=== PATIENT | male | born 1945 | race Caucasian/White ===

== ENCOUNTER 2016-12-09 11:48 | Inpatient (IN) | payer BC, OTHER ==
[~2016-12-09] VITALS: Ht 160 cm; Wt 77.0 kg
[~2016-12-09 11:48] MED LIST: ADULT LOW DOSE81 M1 PO; ADVAIR HFA120 INHALA IH; ALDACTONE50 MG PO; ALLOPURINOL100 MG PO; AMPICILLIN2 GM IV; ASCORBIC ACID500 M3 PO; ASPIRIN E.C.81 M1 PO; ASPIRIN81 M1 PO; Ascorbic Acid,Ester- PO; CARDIZEM120 MG PO; CARTIA XT240 MG PO; CEFTIN500 MG PO; CIPRO500 M1 PO; COLACE100 MG PO; COUMADIN,JANTOVE2 MG PO; COUMADIN2 MG PO; COUMADIN3 M1 PO; COUMADIN3 MG PO; Cardizem CD,Cartia X PO; Ceftin PO; Coumadin,Jantoven PO; ENDOCET 10-6501 EACH PO; ENDOCET 5-3251 EACH PO; FEOSOL325 MG PO; FISH OIL CONC1 EACH PO; FLOVENT 11120 INHALA IH; FLUTICASONE PRO16 GM BOTH NARES; GENTAMICIN 40 MG/ML IV; HEART RATE MED; IMDUR60 MG PO; IRON325 MG PO; JANTOVEN2 MG PO; K-DUR20 MEQ PO; KEFLEX500 MG PO; KLOR-CON M2020 MEQ PO; L-ARGININE1000 MG PO; L-ARGININE500 MG PO; LANOXIN,DIGI0.125 MG PO; LEVAQUIN500 MG PO; LOVENOX80 MG/0.8 PO; LYRICA150 MG PO; METOPROLOL SUCC50 MG PO; METOPROLOL TART50 MG PO; MYCELEX10 MG; Mycostatin PO; NIACIN250 M1 PO; NIASPAN500 MG PO; NYSTATIN100000 UN1 PO; Niacin PO; OXYCODONE APAP PO; PENICILLIN IV; PERCOCET 7.5-31 EACH PO; PRILOSEC20 MG PO; Pravachol PO; Rocephin IV; TAZTIA XT240 M1 PO; TOPAMAX50 MG PO; TOPROL XL50 MG PO; Toprol XL PO; VITAMIN C500 M1 PO; XOPENEX HF200 INHALA IH; ZYLOPRIM100 MG PO; Zithromax PO; [UNRECOGNIZED DRUG - OTHER] PO; coumadin
[2016-12-09 12:50] LABS: MCH 29.3 PG (29.0-34.0); MCHC 32.2 G/DL (30.0-36.0); MCV 91.1 FL (86-99); MEAN PLAT.VOLUME 9.5 uM^3 (9.0-12.4); PLATELET COUNT 171 K/uL (156-360); RED BLOOD COUNT 4.06 M/uL (4.00-5.50)
[2016-12-09 13:00] LABS: INTER. NORMALIZED RATIO 2.9; PTT 32.6 (25-32)
[2016-12-09 13:09] LABS: CHLORIDE 105 mEq/L (99-109); POTASSIUM 3.9 mEq/L (3.7-5.4); SODIUM 138 mEq/L (136-147)
[2016-12-09 13:10] LABS: GLUCOSE 120 mg/dL (70-99); TROP-I INTERPRETATION NEGATIVE; TROPONIN-I < 0.01 ng/mL (0.0-0.30)
[2016-12-09 13:12] LABS: ANION GAP 8 MEQ/L (2-14)
[2016-12-09 13:14] LABS: GFR ESTIMATE (CALCULATED) > 59 mL/min/
[2016-12-09 13:15] LABS: UREA NITROGEN (BUN) 23 mg/dL (9-23)
[2016-12-09 13:43] LABS: ABS NEUTROPHIL COUNT 20.9; BAND NEUTROPHILS 0.9 % (0-8.0); EOSINOPHIL ABS CT 0; INSTRUMENT ABS NEUTROPHIL CT 20.2 K/uL; SEG.NEUTROPHILS 93.9 % (46.0-76.0)
[2016-12-09] MEDS ORDERED: CARTIA XT240 MG PO (14:41)
[2016-12-09] MEDS ORDERED: TOPROL XL50 MG PO (14:42)
[2016-12-09] MEDS ORDERED: NIACIN ER500 MG PO (14:43)
[2016-12-09] MEDS ORDERED: ENDOCET 10-3251 EACH PO (14:44)
[2016-12-09] MEDS ORDERED: COUMADIN2 MG PO (14:44)
[2016-12-09] MEDS ORDERED: WARFARIN SODIUM1 MG PO (14:45)
[2016-12-09] MEDS ORDERED: XOPENEX HF200 INHALA IH (14:46)
[2016-12-09] MEDS ORDERED: IMDUR60 MG PO (14:46)
[2016-12-09] MEDS ORDERED: OMEPRAZOLE20 MG PO (14:47)
[2016-12-09] MEDS ORDERED: MYCOSTATIN 100,60 ML PO (15:01)
[2016-12-09 20:27] VITALS: BP 129/61; BP 139/82
[2016-12-09 20:48] LABS: TROP-I INTERPRETATION NEGATIVE; TROPONIN-I 0.02 ng/mL (0.0-0.30)
[2016-12-09 23:45] VITALS: BP 139/82
[2016-12-10 03:10] VITALS: BP 122/58
[2016-12-10 04:03] LABS: EOSINOPHIL (%) 0 % (0-5); HEMATOCRIT 35.8 % (38.0-50.0); IMMATURE GRANULOCYTE (%) 1.3 % (0.0-0.7); IMMATURE GRANULOCYTE COUNT 0.2 K/uL; INSTRUMENT ABS NEUTROPHIL CT 16.2 K/uL; LYMPHOCYTE COUNT 0.2 K/uL (1.0-2.8); MCH 29.2 PG (29.0-34.0); MCHC 31.6 G/DL (30.0-36.0); MCV 92.5 FL (86-99); MEAN PLAT.VOLUME 9.9 uM^3 (9.0-12.4); MONOCYTE (%) 2.5 % (3-12); MONOCYTE COUNT 0.4 K/uL (0-0.8); NEUTROPHIL (%) 95.1 % (45-76); NEUTROPHIL COUNT 16.2 K/uL (1.8-6.4); PLATELET COUNT 141 K/uL (156-360); RBC DIS.WIDTH-CV 15.4 % (11.8-14.6); RBC DIS.WIDTH-SD 52.2 % (39-53); RED BLOOD COUNT 3.87 M/uL (4.00-5.50)
[2016-12-10 04:22] LABS: CHLORIDE 106 mEq/L (99-109); SODIUM 138 mEq/L (136-147)
[2016-12-10 04:23] LABS: POTASSIUM 4.9 mEq/L (3.7-5.4)
[2016-12-10 04:24] LABS: GLUCOSE 146 mg/dL (70-99)
[2016-12-10 04:25] LABS: ANION GAP 4 MEQ/L (2-14)
[2016-12-10 04:27] LABS: GFR ESTIMATE (CALCULATED) > 59 mL/min/
[2016-12-10 04:28] LABS: UREA NITROGEN (BUN) 19 mg/dL (9-23)
[2016-12-10 04:29] LABS: TROP-I INTERPRETATION NEGATIVE; TROPONIN-I < 0.01 ng/mL (0.0-0.30)
[2016-12-10 04:36] LABS: INTER. NORMALIZED RATIO 2.5; PROTHROMBIN TIME 26.4 (9.2-11.2)
[2016-12-10 09:49] LABS: INTERNAL CONTROL VALID? YES
[2016-12-10 12:33] VITALS: BP 130/63
[2016-12-10 15:48] VITALS: BP 128/68
[2016-12-10 20:06] VITALS: BP 134/63
[2016-12-10 23:12] VITALS: BP 161/66
[2016-12-11 03:53] VITALS: BP 113/59
[2016-12-11 07:20] VITALS: BP 132/98
[2016-12-11 07:43] LABS: HEMATOCRIT 32.6 % (38.0-50.0); MCH 29.3 PG (29.0-34.0); MCHC 31.3 G/DL (30.0-36.0); MCV 93.7 FL (86-99); MEAN PLAT.VOLUME 10.2 uM^3 (9.0-12.4); NRBC (%) 0.3 /100 WBC (0-0); PLATELET COUNT 127 K/uL (156-360); RBC DIS.WIDTH-SD 51.4 % (39-53); RED BLOOD COUNT 3.48 M/uL (4.00-5.50); WHITE BLOOD COUNT 7.4 K/uL (4.1-10.2)
[2016-12-11 07:46] LABS: INTER. NORMALIZED RATIO 2.8; PROTHROMBIN TIME 29.3 (9.2-11.2)
[2016-12-11 08:00] LABS: CHLORIDE 105 mEq/L (99-109); POTASSIUM 4.2 mEq/L (3.7-5.4); SODIUM 136 mEq/L (136-147)
[2016-12-11 08:02] LABS: GLUCOSE 190 mg/dL (70-99)
[2016-12-11 08:03] LABS: ANION GAP 6 MEQ/L (2-14)
[2016-12-11 08:06] LABS: GFR ESTIMATE (CALCULATED) > 59 mL/min/
[2016-12-11 08:07] LABS: UREA NITROGEN (BUN) 17 mg/dL (9-23)
[2016-12-11 11:53] VITALS: BP 148/70
[2016-12-11 16:30] VITALS: BP 144/64
[2016-12-11 18:30] VITALS: BP 133/69
[2016-12-11 23:00] VITALS: BP 139/67
[2016-12-12 03:34] VITALS: BP 145/70
[2016-12-12 06:50] VITALS: BP 153/74
[2016-12-12 07:25] LABS: EOSINOPHIL (%) 0 % (0-5); HEMATOCRIT 32.9 % (38.0-50.0); IMMATURE GRANULOCYTE (%) 2.3 % (0.0-0.7); IMMATURE GRANULOCYTE COUNT 0.1 K/uL; INSTRUMENT ABS NEUTROPHIL CT 5.9 K/uL; LYMPHOCYTE COUNT 0.1 K/uL (1.0-2.8); MCH 29.5 PG (29.0-34.0); MCHC 31.6 G/DL (30.0-36.0); MCV 93.2 FL (86-99); MEAN PLAT.VOLUME 10.1 uM^3 (9.0-12.4); MONOCYTE (%) 1.3 % (3-12); MONOCYTE COUNT 0.1 K/uL (0-0.8); NEUTROPHIL (%) 94.6 % (45-76); NEUTROPHIL COUNT 5.9 K/uL (1.8-6.4); NRBC (%) 0.3 /100 WBC (0-0); PLATELET COUNT 182 K/uL (156-360); RBC DIS.WIDTH-CV 15.1 % (11.8-14.6); RED BLOOD COUNT 3.53 M/uL (4.00-5.50); WHITE BLOOD COUNT 6.2 K/uL (4.1-10.2)
[2016-12-12 07:40] LABS: ALKALINE PHOSPHATASE 97 IU/L (3-129); ANION GAP 10 MEQ/L (2-14); CHLORIDE 106 MEQ/L (99-109); GFR ESTIMATE (CALCULATED) > 59 mL/min/; GLUCOSE 226 mg/dL (70-99); POTASSIUM 3.6 MEQ/L (3.7-5.4); SAMPLE HEMOLYSIS CHECK 0; SAMPLE ICTERIC CHECK 0; SAMPLE LIPEMIA CHECK 0; SODIUM 139 MEQ/L (136-147); TOTAL BILIRUBIN 1.3 MG/DL (0.0-1.0); UREA NITROGEN (BUN) 17 mg/dL (9-23)
[2016-12-12 07:48] LABS: INTER. NORMALIZED RATIO 3.9
[2016-12-12 08:12] LABS: PROTHROMBIN TIME 41.6 (9.2-11.2)
[2016-12-12] MEDS ORDERED: SPIRIVA RESPIMAT4 GM IH (08:55)
[2016-12-12] MEDS ORDERED: PREDNISONE10 MG PO (08:55)
[2016-12-12] MEDS ORDERED: AUGMENTIN875 MG PO (08:55)
== END 2016-12-12 10:19 | disposition home or self-care (01) | DRG 190 ==
LOC: EME 11:48 → EDOF 14:15 → 4EAST 14:15 → EDOF 17:25 → 4EAST 20:21 → 5EAST 12-11 18:22
PROVIDERS: Emergency Medicine; Hospitalist; Internal Medicine
DX: J44.0 Chronic obstructive pulmonary disease with (acute) lower respiratory infection (principal); J15.9 Unspecified bacterial pneumonia; J96.01 Acute respiratory failure with hypoxia; C15.5 Malignant neoplasm of lower third of esophagus; R04.2 Hemoptysis; I10 Essential (primary) hypertension; I27.2 Other secondary pulmonary hypertension; I25.10 Atherosclerotic heart disease of native coronary artery without angina pectoris; I48.2 Chronic atrial fibrillation; D64.9 Anemia, unspecified; E78.5 Hyperlipidemia, unspecified; K21.9 Gastro-esophageal reflux disease without esophagitis; G89.29 Other chronic pain; J98.4 Other disorders of lung; J84.10 Pulmonary fibrosis, unspecified; Z87.01 Personal history of pneumonia (recurrent); Z98.61 Coronary angioplasty status; Z79.01 Long term (current) use of anticoagulants; Z95.2 Presence of prosthetic heart valve; Z95.0 Presence of cardiac pacemaker; Z87.891 Personal history of nicotine dependence; Z80.9 Family history of malignant neoplasm, unspecified
CPT/HCPCS: 71010; 71020; 71275; 77386; 80048; 80053; 80202; 84484; 85025; 85027; 85610; 85730; 87040; 87070; 87205; 87449; 93005; 94010; 94640; 94640 76; 94667; 94668; 94799; 96375; 96413; 96417; 99202; 99281; 99285; G0463 25; J0456; J1100; J1626; J2543; J2930; J3370; J7030; J7050; J9045; J9267

== ENCOUNTER 2016-12-23 08:01 | Inpatient (IN) | payer BC, OTHER ==
[~2016-12-23] VITALS: Ht 160 cm; Wt 83.5 kg
[~2016-12-23 08:01] MED LIST changes: +AUGMENTIN875 MG PO; +ENDOCET 10-3251 EACH PO; +MYCOSTATIN 100,60 ML PO; +NIACIN ER500 MG PO; +OMEPRAZOLE20 MG PO; +PREDNISONE10 MG PO; +SPIRIVA RESPIMAT4 GM IH; +WARFARIN SODIUM1 MG PO
[2016-12-23 08:56] LABS: CHLORIDE 103 mEq/L (99-109); POTASSIUM 3.9 mEq/L (3.7-5.4); SODIUM 136 mEq/L (136-147)
[2016-12-23 08:57] LABS: PTT 34.8 (25-32)
[2016-12-23 08:58] LABS: GLUCOSE 137 mg/dL (70-99); PROTHROMBIN TIME 20.9 (9.2-11.2)
[2016-12-23 09:00] LABS: ANION GAP 9 MEQ/L (2-14); TOTAL BILIRUBIN 1.6 mg/dL (0.0-1.0)
[2016-12-23 09:02] LABS: ALKALINE PHOSPHATASE 84 IU/L (3-129); GFR ESTIMATE (CALCULATED) > 59 mL/min/
[2016-12-23 09:04] LABS: UREA NITROGEN (BUN) 22 mg/dL (9-23)
[2016-12-23 09:08] LABS: TROP-I INTERPRETATION NEGATIVE; TROPONIN-I 0.04 ng/mL (0.0-0.30)
[2016-12-23 09:59] LABS: HEMATOCRIT 36.2 % (38.0-50.0); MCH 29.4 PG (29.0-34.0); MCHC 31.2 G/DL (30.0-36.0); RBC DIS.WIDTH-CV 16.7 % (11.8-14.6); RBC DIS.WIDTH-SD 54.6 % (39-53); RED BLOOD COUNT 3.85 M/uL (4.00-5.50)
[2016-12-23 10:00] LABS: EOSINOPHIL (%) 0 % (0-5); IMMATURE GRANULOCYTE (%) 1.6 % (0.0-0.7); INSTRUMENT ABS NEUTROPHIL CT 0.6 K/uL; MONOCYTE (%) 6.3 % (3-12); NEUTROPHIL (%) 85.8 % (45-76); NEUTROPHIL COUNT 0.6 K/uL (1.8-6.4)
[2016-12-23 10:03] LABS: WHITE BLOOD COUNT 0.6 K/uL (4.1-10.2)
[2016-12-23 10:17] LABS: BAND NEUTROPHILS 8.3 % (0-8.0); LYMPHOCYTES 5.7 % (15.0-45.0); SEG.NEUTROPHILS 78.9 % (46.0-76.0)
[2016-12-23 10:18] LABS: ATYPICAL LYMPHOCYTE 0.4 %; BASOPHILS 0.4 %; METAMYELOCYTES 1.3 %; NUCLEATED RBC'S 3.1
[2016-12-23 10:19] LABS: ANISOCYTOSIS 2+; MACROCYTES 1+; SPHEROCYTES 2+
[2016-12-23] MEDS ORDERED: COUMADIN1 MG PO ×2 (11:37→11:39)
[2016-12-23] MEDS ORDERED: COMPAZINE10 MG PO (11:40)
[2016-12-23] MEDS ORDERED: L-ARGININE1000 MG PO (11:40)
[2016-12-23] MEDS ORDERED: DAILY VALUE1 EACH PO (11:41)
[2016-12-23 13:40] VITALS: BP 101/53
[2016-12-23 14:56] LABS: ALKALINE PHOSPHATASE 68 IU/L (3-129); ANION GAP 9 MEQ/L (2-14); CHLORIDE 108 MEQ/L (99-109); GFR ESTIMATE (CALCULATED) > 59 mL/min/; GLUCOSE 140 mg/dL (70-99); SAMPLE HEMOLYSIS CHECK 0; SAMPLE ICTERIC CHECK 0; SAMPLE LIPEMIA CHECK 0; SODIUM 138 MEQ/L (136-147); UREA NITROGEN (BUN) 22 mg/dL (9-23)
[2016-12-23 14:59] LABS: TOTAL BILIRUBIN 1.6 MG/DL (0.0-1.0)
[2016-12-23 15:57] LABS: ABS NEUTROPHIL COUNT 0.6; ANISOCYTOSIS 2+; EOSINOPHIL ABS CT 0; HEMATOCRIT 34.8 % (38.0-50.0); HEMATOLOGY COMMENT 1 DIFF ON BUFFY COAT; INSTRUMENT ABS NEUTROPHIL CT 0.5 K/uL; MACROCYTES 1+; MCH 29.7 PG (29.0-34.0); MCHC 30.5 G/DL (30.0-36.0); MCV 97.5 FL (86-99); MEAN PLAT.VOLUME 9.2 uM^3 (9.0-12.4); PLATELET COUNT 103 K/uL (156-360); RBC DIS.WIDTH-CV 16.9 % (11.8-14.6); RBC DIS.WIDTH-SD 58.8 % (39-53); RED BLOOD COUNT 3.57 M/uL (4.00-5.50); SPHEROCYTES 1+; WHITE BLOOD COUNT 0.7 K/uL (4.1-10.2)
[2016-12-23 16:37] LABS: BASE EXCESS -3.5 mEq/L (-3 to +3); BICARBONATE 19.5 mEq/L (22-26); CARBOXY HGB 2.1 % (0-5); COMMENTS - BLOOD GASES A+C+; DEVICE NCHH; FI02 100 %; METHEMOGLOBIN 1.7 % (0-1.5); O2 FLOW 70 L/MIN; PCO2 28 mm Hg (35-45); PO2 61 mm Hg (80-100); SITE RR; pH 7.45 (7.35-7.45)
[2016-12-23 16:38] LABS: TOTAL RESP RATE 32 resp/min
[2016-12-23 16:50] VITALS: BP 143/58
[2016-12-23 19:10] VITALS: BP 120/103
[2016-12-23 23:21] VITALS: BP 113/69
[2016-12-24] VITALS (20 sets, daily range): BP systolic 74–120; BP diastolic 30–70
[2016-12-24 03:16] LABS: BASE EXCESS -8.9 mEq/L (-3 to +3); METHEMOGLOBIN 1.7 % (0-1.5); PCO2 26 mm Hg (35-45); PO2 64 mm Hg (80-100); pH 7.37 (7.35-7.45)
[2016-12-24 03:17] LABS: COMMENTS - BLOOD GASES C+; DEVICE HHFNC; FI02 100 %; O2 FLOW 70 L/MIN; SITE LR; TOTAL RESP RATE 28 resp/min
[2016-12-24 03:44] LABS: HEMATOCRIT 34.9 % (38.0-50.0); HEMATOCRIT 35.4 % (38.0-50.0); MCH 29.1 PG (29.0-34.0); MCH 29.2 PG (29.0-34.0); MCHC 30.1 G/DL (30.0-36.0); MCHC 30.2 G/DL (30.0-36.0); MCV 96.7 FL (86-99); MEAN PLAT.VOLUME 10.1 uM^3 (9.0-12.4); PLATELET COUNT 104 K/uL (156-360); RBC DIS.WIDTH-CV 17.2 % (11.8-14.6); RBC DIS.WIDTH-CV 17.3 % (11.8-14.6); RBC DIS.WIDTH-SD 59.4 % (39-53); RBC DIS.WIDTH-SD 59.5 % (39-53); RED BLOOD COUNT 3.61 M/uL (4.00-5.50); RED BLOOD COUNT 3.66 M/uL (4.00-5.50); WHITE BLOOD COUNT 3.3 K/uL (4.1-10.2); WHITE BLOOD COUNT 3.6 K/uL (4.1-10.2)
[2016-12-24 03:49] LABS: CHLORIDE 105 mEq/L (99-109); SODIUM 134 mEq/L (136-147)
[2016-12-24 03:51] LABS: GLUCOSE 177 mg/dL (70-99)
[2016-12-24 03:53] LABS: ANION GAP 12 MEQ/L (2-14)
[2016-12-24 03:54] LABS: CHLORIDE 107 mEq/L (99-109)
[2016-12-24 03:55] LABS: ALKALINE PHOSPHATASE 69 IU/L (3-129); GFR ESTIMATE (CALCULATED) 45 mL/min/; SODIUM 135 mEq/L (136-147); TOTAL BILIRUBIN 2.4 mg/dL (0.0-1.0)
[2016-12-24 03:56] LABS: UREA NITROGEN (BUN) 26 mg/dL (9-23)
[2016-12-24 03:57] LABS: GLUCOSE 179 mg/dL (70-99)
[2016-12-24 03:58] LABS: ANION GAP 11 MEQ/L (2-14)
[2016-12-24 03:59] LABS: TOTAL BILIRUBIN 2.5 mg/dL (0.0-1.0)
[2016-12-24 04:00] LABS: ALKALINE PHOSPHATASE 69 IU/L (3-129); GFR ESTIMATE (CALCULATED) 45 mL/min/
[2016-12-24 04:02] LABS: UREA NITROGEN (BUN) 26 mg/dL (9-23)
[2016-12-24 04:38] LABS: ABS NEUTROPHIL COUNT 2.6; ANISOCYTOSIS 2+; BAND NEUTROPHILS 16.4 % (0-8.0); EOSINOPHIL ABS CT 0; INSTRUMENT ABS NEUTROPHIL CT 3.2 K/uL; LYMPHOCYTES 3.6 % (15.0-45.0); MEAN PLAT.VOLUME 10.5 uM^3 (9.0-12.4); METAMYELOCYTES 17.3 %; MYELOCYTES 2.7 %; PLAT.SUFFICIENCY DECREASED; PLATELET COUNT 99 K/uL (156-360); POLYCHROMASIA 2+; TEAR DROP CELLS 1+; TOX.VACUOLIZATION 2+; TOXIC GRANULATION 2+
[2016-12-24 04:57] LABS: SEG.NEUTROPHILS 56.4 % (46.0-76.0)
[2016-12-24 08:43] LABS: BASE EXCESS -9.4 mEq/L (-3 to +3); BICARBONATE 15.3 mEq/L (22-26); CARBOXY HGB 1.4 % (0-5); COMMENTS - BLOOD GASES A+C+; DEVICE HHFNC; FI02 100 %; METHEMOGLOBIN 1.7 % (0-1.5); O2 FLOW 70 L/MIN; PCO2 29 mm Hg (35-45); PO2 199 mm Hg (80-100); SITE LRA; TOTAL RESP RATE 22 resp/min; pH 7.33 (7.35-7.45)
[2016-12-24 10:18] LABS: METH RESISTANT S AUREUS PCR NEGATIVE (NEGATIVE)
[2016-12-24 10:29] LABS: PROBE CHECK PASS; SPECIMEN PROCESSING CONTROL PASS
[2016-12-24 11:50] LABS: PROTHROMBIN TIME 21.2 (9.2-11.2)
[2016-12-24 11:58] LABS: ANION GAP 15 MEQ/L (2-14); CHLORIDE 104 MEQ/L (99-109); GFR ESTIMATE (CALCULATED) 40 mL/min/; GLUCOSE 205 mg/dL (70-99); POTASSIUM 5.3 MEQ/L (3.7-5.4); SAMPLE HEMOLYSIS CHECK 0; SAMPLE ICTERIC CHECK 0; SAMPLE LIPEMIA CHECK 0; SODIUM 135 MEQ/L (136-147); UREA NITROGEN (BUN) 28 mg/dL (9-23)
[2016-12-24 12:40] LABS: ADD MIUA? YES; BILIRUBIN NEGATIVE; BLOOD MODERATE; COLOR AMBER ((YELLOW)); GLUCOSE (STRIP) 50; KETONES NEGATIVE; LEUKOCYTES NEGATIVE; NITRITE NEGATIVE; PROTEIN (STRIP) 100; SPECIFIC GRAVITY 1.019 (1.000-1.030); UROBILINOGEN 0.2 MG/DL (0.2-1.0)
[2016-12-24 13:14] LABS: BASE EXCESS -17.5 mEq/L (-3 to +3); BICARBONATE 13.5 mEq/L (22-26); CARBOXY HGB 1.9 % (0-5); COMMENTS - BLOOD GASES C+A-N/A; DEVICE 980 VENTILATOR; FI02 100 %; MECHANICAL RATE 20 resp/min; METHEMOGLOBIN 1.6 % (0-1.5); MODE AC; PCO2 56 mm Hg (35-45); PEEP 16 CM/H20; PO2 177 mm Hg (80-100); SITE LR; TIDAL VOLUME 440 ML; TOTAL RESP RATE 20 resp/min
[2016-12-24 13:15] LABS: pH 6.99 (7.35-7.45)
[2016-12-24 13:20] LABS: C DIFF TOXIN NEGATIVE (NEGATIVE)
[2016-12-24 13:27] LABS: PROBE CHECK PASS; SPECIMEN PROCESSING CONTROL PASS
[2016-12-24 13:38] LABS: BACTERIA RARE /HPF; EPITHELIAL CELLS NONE SEEN /HPF; GRANULAR CASTS 0-5 /LPF; MUCUS TRACE /LPF; RED BLOOD CELLS 0-5 /HPF (0-5); UCUL ADDED? NO
[2016-12-24 14:28] LABS: BASE EXCESS -9.5 mEq/L (-3 to +3); CARBOXY HGB 1.7 % (0-5); METHEMOGLOBIN 1.7 % (0-1.5)
[2016-12-24 14:29] LABS: BICARBONATE 18.7 mEq/L (22-26); COMMENTS - BLOOD GASES A+C+; DEVICE VENT; PCO2 50 mm Hg (35-45); PO2 139 mm Hg (80-100); SITE LR
[2016-12-24 14:30] LABS: FI02 80 %; MECHANICAL RATE 25 resp/min; MODE AC; PEEP 14 CM/H20; TIDAL VOLUME 440 ML; TOTAL RESP RATE 28 resp/min; pH 7.18 (7.35-7.45)
[2016-12-24 15:45] LABS: ALKALINE PHOSPHATASE 74 IU/L (3-129); DIRECT BILIRUBIN 2.7 mg/dL (0.0-0.3); MAGNESIUM 1.7 mg/dl (1.3-2.7)
[2016-12-24 15:46] LABS: TOTAL BILIRUBIN 3.9 MG/DL (0.0-1.0)
[2016-12-24 16:07] LABS: ABS NEUTROPHIL COUNT 5.9; EOSINOPHIL ABS CT 0; HEMATOCRIT 36.4 % (38.0-50.0); INSTRUMENT ABS NEUTROPHIL CT 5.9 K/uL; MCH 29.9 PG (29.0-34.0); MCHC 29.7 G/DL (30.0-36.0); MCV 100.8 FL (86-99); MEAN PLAT.VOLUME 10.5 uM^3 (9.0-12.4); NRBC (%) 0.5 /100 WBC (0-0); PLATELET COUNT 97 K/uL (156-360); RBC DIS.WIDTH-CV 17.3 % (11.8-14.6); RBC DIS.WIDTH-SD 63.1 % (39-53); RED BLOOD COUNT 3.61 M/uL (4.00-5.50); WHITE BLOOD COUNT 7.7 K/uL (4.1-10.2)
[2016-12-24 18:39] LABS: POINT-OF-CARE METER ID UU14174217
[2016-12-24 19:21] LABS: CK-MB 1.5 ng/mL (0.0-4.9); TROP-I INTERPRETATION NEGATIVE; TROPONIN-I 0.09 ng/mL (0.0-0.30)
[2016-12-24 19:44] LABS: CREATINE KINASE 72 IU/L (1-294); TOTAL CK 72 IU/L (1-294)
[2016-12-24 20:33] LABS: VANCOMYCIN, TROUGH 13.8 MCG/ML (10-20)
[2016-12-24 21:06] LABS: BASE EXCESS -12.9 mEq/L (-3 to +3); CARBOXY HGB 1.8 % (0-5); METHEMOGLOBIN 1.6 % (0-1.5)
[2016-12-24 21:07] LABS: BICARBONATE 13.3 mEq/L (22-26); DEVICE PB980; FI02 50 %; MECHANICAL RATE 26 resp/min; MODE ACVC; PCO2 31 mm Hg (35-45); PEEP 12 CM/H20; PO2 102 mm Hg (80-100); TIDAL VOLUME 450 ML; TOTAL RESP RATE 26 resp/min; pH 7.24 (7.35-7.45)
[2016-12-24 21:08] LABS: SITE LR
[2016-12-24 22:02] LABS: HEMATOCRIT 36.5 % (38.0-50.0); MCH 30.2 PG (29.0-34.0); MCHC 29.6 G/DL (30.0-36.0); MEAN PLAT.VOLUME 11.3 uM^3 (9.0-12.4); NRBC (%) 0.4 /100 WBC (0-0); PLAT.SUFFICIENCY DECREASED; PLATELET COUNT 72 K/uL (156-360); RBC DIS.WIDTH-CV 17.5 % (11.8-14.6); RBC DIS.WIDTH-SD 63.9 % (39-53); RED BLOOD COUNT 3.58 M/uL (4.00-5.50); WHITE BLOOD COUNT 8.9 K/uL (4.1-10.2)
[2016-12-24 22:20] LABS: ALKALINE PHOSPHATASE 57 IU/L (3-129); ANION GAP 17 MEQ/L (2-14); CHLORIDE 106 MEQ/L (99-109); GFR ESTIMATE (CALCULATED) 28 mL/min/; GLUCOSE 178 mg/dL (70-99); MAGNESIUM 1.8 mg/dl (1.3-2.7); SAMPLE HEMOLYSIS CHECK 0; SAMPLE ICTERIC CHECK 1; SAMPLE LIPEMIA CHECK 0; SODIUM 137 MEQ/L (136-147); UREA NITROGEN (BUN) 34 mg/dL (9-23)
[2016-12-24 22:22] LABS: POTASSIUM 6.8 MEQ/L (3.7-5.4)
[2016-12-25] VITALS (28 sets, daily range): BP systolic 94–147; BP diastolic 44–65
[2016-12-25 01:19] LABS: POINT-OF-CARE METER ID UU13113748
[2016-12-25 01:33] LABS: CREATINE KINASE 142 IU/L (1-294); TOTAL CK 142 IU/L (1-294)
[2016-12-25 01:35] LABS: TROP-I INTERPRETATION NEGATIVE; TROPONIN-I 0.13 ng/mL (0.0-0.30)
[2016-12-25 01:40] LABS: CK-MB 1.5 ng/mL (0.0-4.9)
[2016-12-25 05:41] LABS: CHLORIDE 104 mEq/L (99-109); SODIUM 138 mEq/L (136-147)
[2016-12-25 05:43] LABS: GLUCOSE 256 mg/dL (70-99)
[2016-12-25 05:44] LABS: ANION GAP 15 MEQ/L (2-14)
[2016-12-25 05:48] LABS: UREA NITROGEN (BUN) 44 mg/dL (9-23)
[2016-12-25 05:49] LABS: CREATINE KINASE 265 IU/L (1-294); TOTAL CK 265 IU/L (1-294)
[2016-12-25 05:52] LABS: TROP-I INTERPRETATION NEGATIVE; TROPONIN-I 0.21 ng/mL (0.0-0.30)
[2016-12-25 05:55] LABS: CK-MB 2.3 ng/mL (0.0-4.9)
[2016-12-25 05:56] LABS: GFR ESTIMATE (CALCULATED) 21 mL/min/; POTASSIUM 5.3 mEq/L (3.7-5.4)
[2016-12-25 06:07] LABS: HEMATOCRIT 31.1 % (38.0-50.0); MCH 29.6 PG (29.0-34.0); MCHC 30.9 G/DL (30.0-36.0); MEAN PLAT.VOLUME 12.5 uM^3 (9.0-12.4); NRBC (%) 0.8 /100 WBC (0-0); PLATELET COUNT 73 K/uL (156-360); RBC DIS.WIDTH-CV 17.4 % (11.8-14.6); RBC DIS.WIDTH-SD 59.7 % (39-53); RED BLOOD COUNT 3.24 M/uL (4.00-5.50); WHITE BLOOD COUNT 7.9 K/uL (4.1-10.2)
[2016-12-25 06:23] LABS: POINT-OF-CARE METER ID UU14174217
[2016-12-25 06:48] LABS: MAGNESIUM 1.6 mg/dL (1.3-2.7)
[2016-12-25 06:55] LABS: ALKALINE PHOSPHATASE 64 IU/L (3-129)
[2016-12-25 06:58] LABS: DIRECT BILIRUBIN 2.1 mg/dL (0.0-0.3)
[2016-12-25 07:22] LABS: ANISOCYTOSIS 1+; ATYPICAL LYMPHOCYTE 0.9 %; BAND NEUTROPHILS 16.5 % (0-8.0); BURR CELLS 1+; EOSINOPHIL ABS CT 0; INSTRUMENT ABS NEUTROPHIL CT 7.3 K/uL; LYMPHOCYTES 0.8 % (15.0-45.0); MACROCYTES 1+; METAMYELOCYTES 0.9 %; MYELOCYTES 8.7 %; NUCLEATED RBC'S 1.7; PLAT.SUFFICIENCY DECREASED; POIKILOCYTOSIS 1+; SMUDGE CELLS 4.3
[2016-12-25 07:23] LABS: SEG.NEUTROPHILS 72.2 % (46.0-76.0)
[2016-12-25 07:31] LABS: INTERNAL CONTROL VALID? YES
[2016-12-25 14:25] LABS: POINT-OF-CARE METER ID UU14174217
[2016-12-25 16:10] LABS: HEMATOCRIT 28.1 % (38.0-50.0); MCHC 31.7 G/DL (30.0-36.0); MCV 94.6 FL (86-99); MEAN PLAT.VOLUME 11.3 uM^3 (9.0-12.4); PLATELET COUNT 59 K/uL (156-360); RBC DIS.WIDTH-CV 17.2 % (11.8-14.6); RBC DIS.WIDTH-SD 58.1 % (39-53); RED BLOOD COUNT 2.97 M/uL (4.00-5.50); WHITE BLOOD COUNT 9.7 K/uL (4.1-10.2)
[2016-12-25 16:32] LABS: ANION GAP 14 MEQ/L (2-14); CHLORIDE 100 MEQ/L (99-109); GFR ESTIMATE (CALCULATED) 19 mL/min/; GLUCOSE 348 mg/dL (70-99); POTASSIUM 4.4 MEQ/L (3.7-5.4); SAMPLE HEMOLYSIS CHECK 0; SAMPLE ICTERIC CHECK 1; SAMPLE LIPEMIA CHECK 0; SODIUM 140 MEQ/L (136-147); UREA NITROGEN (BUN) 57 mg/dL (9-23)
[2016-12-25 16:57] LABS: TROP-I INTERPRETATION INDETERMINATE; TROPONIN-I 0.33 ng/mL (0.0-0.30)
[2016-12-25 17:02] LABS: MAGNESIUM 2.6 mg/dl (1.3-2.7)
[2016-12-25 18:33] LABS: POINT-OF-CARE METER ID UU13113748
[2016-12-26] VITALS: BP 69/44
[2016-12-26 01:00] VITALS: BP 60/37
[2016-12-26 01:30] VITALS: BP 0/0
== END 2016-12-26 01:05 | DRG 871 ==
LOC: EME 08:01 → 4WEST 10:54 → 4EAST 10:54 → EDOF 10:54 → 4EAST 13:27 → 4WEST 12-24 08:37
PROVIDERS: Emergency Medicine; Hospitalist; Internal Medicine; Internal Medicine Nephrology; Internal Medicine Pulmonary Disease
DX: A41.9 Sepsis, unspecified organism (principal); E78.5 Hyperlipidemia, unspecified; E83.42 Hypomagnesemia; J69.0 Pneumonitis due to inhalation of food and vomit; E83.51 Hypocalcemia; E87.2 Acidosis; C15.5 Malignant neoplasm of lower third of esophagus; E87.5 Hyperkalemia; I25.10 Atherosclerotic heart disease of native coronary artery without angina pectoris; I27.2 Other secondary pulmonary hypertension; J44.1 Chronic obstructive pulmonary disease with (acute) exacerbation; I48.2 Chronic atrial fibrillation; Z51.5 Encounter for palliative care; K21.9 Gastro-esophageal reflux disease without esophagitis; R65.21 Severe sepsis with septic shock; N18.3 Chronic kidney disease, stage 3 (moderate); N17.9 Acute kidney failure, unspecified; J96.21 Acute and chronic respiratory failure with hypoxia; D61.818 Other pancytopenia; E88.81 Metabolic syndrome and other insulin resistance; I12.9 Hypertensive chronic kidney disease with stage 1 through stage 4 chronic kidney disease, or unspecified chronic kidney disease; T45.1X5A Adverse effect of antineoplastic and immunosuppressive drugs, initial encounter; B37.0 Candidal stomatitis; K72.00 Acute and subacute hepatic failure without coma; K80.20 Calculus of gallbladder without cholecystitis without obstruction; Z79.01 Long term (current) use of anticoagulants; I25.2 Old myocardial infarction; Z87.01 Personal history of pneumonia (recurrent); Z87.891 Personal history of nicotine dependence; Z88.5 Allergy status to narcotic agent; Z92.3 Personal history of irradiation; Z95.0 Presence of cardiac pacemaker; Z95.2 Presence of prosthetic heart valve; Z95.5 Presence of coronary angioplasty implant and graft
CPT/HCPCS: 36600; 71010; 76705; 77386; 80048; 80048 91; 80053; 80076; 80202; 81003; 82550; 82550 91; 82553; 82570; 82803; 82948; 83605; 83735; 83880; 84100; 84156; 84300; 84484; 85007; 85009; 85025; 85025 91; 85027; 85610; 85730; 87040; 87070; 87077; 87086; 87186; 87205; 87449; 87493; 87641; 87801; 93005; 93306; 94002; 94003; 94640; 94640 76; 94667; 94799; 96375; 96413; 96417; 99202; 99281; 99285; J0171; J0456; J0610; J1100; J1170; J1447; J1626; J1720; J1815; J2060; J2185; J2270; J2405; J2543; J2704; J2920; J3010; J3370; J3430; J3475; J7030; J7040; J7050; J7070; J9045; J9267; P9045; S0028